=== PATIENT | male | born 1990 | race African-American/Black ===

== ENCOUNTER 2022-10-10 17:21 | Emergency (ER) | payer SELFPAY ==
[~2022-10-10] VITALS: Ht 188 cm; Wt 83.5 kg
[2022-10-10 17:47] VITALS: BP 165/121
[2022-10-10] MEDS ORDERED: ACET-8905 PO (19:36)
[2022-10-10] MEDS ORDERED: CLIN150C1 PO (19:36)
[2022-10-10 20:10] VITALS: BP 139/98
--- NOTE | 2022-10-10 20:10 | NUR ---
Patient discharged with v/s stable. Written and verbal after care instructions given and explained. Patient alert, oriented and verbalized understanding of instructions. Ambulatory with to car. All questions addressed prior to discharge. ID band removed. Patient advised to follow up with PMD. Rx of CLEOCIN, HYDROCODONE given. Patient educated on indication of medication including possible reaction and side effects. Opportunity to ask questions provided and answered.
== END 2022-10-10 20:10 | disposition home or self-care (01) ==
LOC: MED 17:21
DX: S02.5XXA Fracture of tooth (traumatic), initial encounter for closed fracture (principal); X58.XXXA Exposure to other specified factors, initial encounter; Y93.89 Activity, other specified; Y92.89 Other specified places as the place of occurrence of the external cause; Y99.8 Other external cause status
CPT/HCPCS: 99283